=== PATIENT | female | born 1950 | race Caucasian/White ===

== ENCOUNTER → 2017-10-19 | Outpatient (CLI) | payer MEDICARE ==
[~2017-10-19] MED LIST: IRBE150T51 PO; LEVO50TA4 PO; SYMBICORT
== END | disposition home or self-care (01) ==
LOC: RAH 10:00
PROVIDERS: ATTEND Family Medicine
DX: G45.9 Transient cerebral ischemic attack, unspecified (principal)
CPT/HCPCS: 70450; 93880

== ENCOUNTER 2019-12-07 18:20 | Observation (INO) | payer MEDICARE, OTHER ==
[~2019-12-07] VITALS: Ht 167.6 cm; Wt 77.2 kg
[2019-12-07 19:16] LABS: BASOPHILS % (AUTO) 0.2 % (0.0-5.0); EOSINOPHILS % (AUTO) 0.1 % (0.0-8.0); HEMATOCRIT 34.2 % (36-48); LYMPHOCYTES % (AUTO) 13.8 % (21.0-51.0); MEAN CORPUSCULAR HEMOGLOBIN 30.8 pg (27.0-33.0); MEAN CORPUSCULAR HGB CONC 34.2 g/dL (32.0-36.0); MONOCYTES % (AUTO) 6.4 % (3.0-13.0); NEUTROPHILS % (AUTO) 79.1 % (40.0-77.0); PLATELET COUNT (AUTO) 179 K/uL (130-400); RED CELL DISTRIBUTION WIDTH 13.7 % (11.0-15.5)
[2019-12-07 19:29] LABS: CARBON DIOXIDE 28 mmol/L (21-32); CHLORIDE 102 mmol/L (101-111); CREATININE 1.1 mg/dL (0.5-1.5); GLOMERULAR FILTR. RATE CALC 52 mL/min (>60); GLUCOSE,RANDOM 117 mg/dL (70-105); POTASSIUM 3.2 mmol/L (3.5-5.1); SODIUM SERUM 138 mmol/L (136-145); UREA NITROGEN, BLOOD 12 mg/dL (7-18)
[2019-12-07 19:33] LABS: ALANINE AMINOTRANSFERASE 29 U/L (12-78); AMYLASE 41 U/L (25-115); ASPARTATE AMINOTRANSFERASE 22 U/L (10-37); BILIRUBIN,TOTAL 1.4 mg/dL (0.2-1.0); TOTAL PROTEIN, SERUM 6.3 g/dL (6.0-8.3)
[2019-12-07 19:38] LABS: LIPASE < 50 U/L (114-286)
[2019-12-07] MEDS ORDERED: ZOSYN 3.375GM+NS 50ML 50 ML IV ONE (20:46)
[2019-12-07] MEDS ORDERED: ONDANSETRON HCL 4 MG/2 ML VIAL ONE (20:47)
[2019-12-07] MEDS ORDERED: MORPHINE SULFATE 4 MG/1ML SYG ONE (20:47)
[2019-12-07] MEDS ORDERED: SODIUM CHLORIDE 0.9% 1000ML 1,000 ML IV SCH (22:04)
[2019-12-07] MEDS ORDERED: HYDRALAZINE HCL 20 MG/ML VIAL IV PRN (22:15)
[2019-12-07] MEDS ORDERED: LACTULOSE 20 GM/30 ML UDCUP PO PRN (22:15)
[2019-12-07] MEDS ORDERED: ACETAMINOPHEN 325 MG TAB PO PRN ×2 (22:15)
[2019-12-07] MEDS ORDERED: ONDANSETRON HCL 4 MG/2 ML VIAL IV PRN (22:15)
[2019-12-07] MEDS ORDERED: FAMOTIDINE/PF 20 MG/2 ML VIAL IV ONE (22:28)
[2019-12-08] VITALS (7 sets, daily range): BP systolic 99–140; BP diastolic 51–84
--- NOTE | 2019-12-08 00:10 | NUR ---
ADMIT NOTE ADMIT TO ROOM 322 VIA STRETCHER FROM ER. PATIENT AWAKE, ALERT, OX3, NO SOB, C/O PAIN, SEE PAIN ASSESSMENT AND TREATMENT, CONTINUE NPO, IVF INFUSING ORDERED, TEACH PATIENT PLAN OF CARE AND EXPECTED OUTCOME, PATIENT VERBALIZES UNDERSTANDING VIA TEACH BACK
[2019-12-08] MEDS: MORPHINE SULFATE 2 MG/ML 1ML SYG IV PRN ×5 (00:44→21:09)
[2019-12-08] MEDS: ZOSYN 3.375GM+NS 50ML 50 ML IV SCH ×3 (04:19→21:06)
[2019-12-08 05:27] LABS: BASOPHILS % (AUTO) 0.2 % (0.0-5.0); EOSINOPHILS % (AUTO) 0.7 % (0.0-8.0); HEMATOCRIT 30.1 % (36-48); LYMPHOCYTES % (AUTO) 14.9 % (21.0-51.0); MEAN CORPUSCULAR HEMOGLOBIN 30.6 pg (27.0-33.0); MEAN CORPUSCULAR HGB CONC 33.6 g/dL (32.0-36.0); MEAN CORPUSCULAR VOLUME 91.2 fL (79-99); MONOCYTES % (AUTO) 6.3 % (3.0-13.0); NEUTROPHILS % (AUTO) 77.3 % (40.0-77.0); PLATELET COUNT (AUTO) 153 K/uL (130-400); RED CELL DISTRIBUTION WIDTH 13.9 % (11.0-15.5); WHITE BLOOD COUNT (AUTO) 9.9 K/uL (4.8-10.8)
[2019-12-08 05:58] LABS: CREATININE 1.1 mg/dL (0.5-1.5); POTASSIUM 3.1 mmol/L (3.5-5.1)
[2019-12-08] MEDS ORDERED: POTASSIUM CHLORIDE 20 MEQ ERTAB PO SCH (08:30)
[2019-12-08] MEDS ORDERED: MAGNESIUM 2GM PREMIX 50ML 50 ML IV SCH (08:45)
--- NOTE | 2019-12-08 09:00 | NUR ---
DR BLACKWOOD CONSULT DR BLACKWOOD IN TO SEE PATIENT ORDERS FOR LR AT 100CC/HR AND TO KEEP PATIENT NPO
[2019-12-08] MEDS: LACTATED RINGERS 1000ML 1,000 ML IV SCH ×3 (09:36→22:21)
[2019-12-08] MEDS: FAMOTIDINE/PF 20 MG/2 ML VIAL IV SCH ×2 (09:38→10:33)
[2019-12-08] MEDS ORDERED: LIDOCAINE HCL-MPF 1% 2ML VIAL IV PRN (10:30)
--- NOTE | 2019-12-08 15:23 | NUR ---
RD NOTIFICATION Pt admitted with Colitis. Status post colonoscopy; Pt NPO with antibiotic therapy at this time. Pt with nausea, distended abdomen. Abdominal cyst/mass as per EMR. Recommend continue POC. Recommend to consider Altered means nutrition (TPN/PPN). When medically feasible, recommend advance diet as tolerated to goal of GI Soft/[place]. RD to continue to monitor. Please notify as additional nutrition concerns arise. Thank you. Addendum: 12/08/19 at [address] RD Amended: Links added.
[2019-12-08] MEDS ORDERED: GLUCAGON 1MG KIT 1 MG ML IM PRN (16:30)
[2019-12-08] MEDS ORDERED: DEXTROSE 50%-WATER 50 ML DISP.SYRIN IV PRN (16:30)
[2019-12-08] MEDS: POTASSIUM CHLORIDE 20MEQ/100ML 100 ML IV PRN (21:02)
[2019-12-09] MEDS: POTASSIUM CHLORIDE 20MEQ/100ML 100 ML IV PRN (01:26)
[2019-12-09 03:37] VITALS: BP 127/73
[2019-12-09 04:23] LABS: APPEARANCE,URINE Clear (CLEAR); BILIRUBIN,URINE Negative (NEGATIVE); COLOR,URINE Yellow (YELLOW); GLUCOSE, URINE (UA) Negative (NEGATIVE); KETONES,URINE Negative (NEGATIVE); LEUKOCYTE ESTERASE ,URINE Negative (NEGATIVE); NITRATE,URINE Negative (NEGATIVE); OCCULT BLOOD,URINE Negative (NEGATIVE); PROTEIN,URINE Negative (NEGATIVE)
[2019-12-09] MEDS: ZOSYN 3.375GM+NS 50ML 50 ML IV SCH ×3 (04:56→21:38)
[2019-12-09] MEDS: LACTATED RINGERS 1000ML 1,000 ML IV SCH ×3 (04:57→21:38)
[2019-12-09 06:42] LABS: BASOPHILS % (AUTO) 0.3 % (0.0-5.0); HEMATOCRIT 29.7 % (36-48); LYMPHOCYTES % (AUTO) 26.1 % (21.0-51.0); MEAN CORPUSCULAR HGB CONC 33.7 g/dL (32.0-36.0); MONOCYTES % (AUTO) 6.7 % (3.0-13.0); NEUTROPHILS % (AUTO) 61.5 % (40.0-77.0); PLATELET COUNT (AUTO) 150 K/uL (130-400); RED BLOOD CELL COUNT(AUTO) 3.23 MIL/uL (4.00-5.50); RED CELL DISTRIBUTION WIDTH 13.7 % (11.0-15.5); WHITE BLOOD COUNT (AUTO) 7.2 K/uL (4.8-10.8)
[2019-12-09 06:55] LABS: CREATININE 1.1 mg/dL (0.5-1.5); MAGNESIUM 1.9 mg/dL (1.80-2.40); POTASSIUM 3.9 mmol/L (3.5-5.1)
[2019-12-09 07:30] VITALS: BP 149/74
[2019-12-09] MEDS: FAMOTIDINE/PF 20 MG/2 ML VIAL IV SCH ×2 (09:18→21:38)
[2019-12-09 11:00] VITALS: BP 122/71
--- NOTE | 2019-12-09 12:47 | NUR ---
RD UPDATE Pt diet advanced to Full Liquid at time of screen. RD to continue to monitor.
[2019-12-09 16:00] VITALS: BP 138/78
[2019-12-09 20:28] VITALS: BP 138/78
[2019-12-10 00:01] VITALS: BP 126/67
[2019-12-10 04:00] VITALS: BP 129/71
[2019-12-10 05:45] LABS: BASOPHILS % (AUTO) 0.6 % (0.0-5.0); EOSINOPHILS % (AUTO) 6.9 % (0.0-8.0); HEMATOCRIT 30.5 % (36-48); MEAN CORPUSCULAR HEMOGLOBIN 30.1 pg (27.0-33.0); MEAN CORPUSCULAR HGB CONC 33.4 g/dL (32.0-36.0); MONOCYTES % (AUTO) 9.6 % (3.0-13.0); NEUTROPHILS % (AUTO) 52.5 % (40.0-77.0); PLATELET COUNT (AUTO) 210 K/uL (130-400); RED BLOOD CELL COUNT(AUTO) 3.39 MIL/uL (4.00-5.50); RED CELL DISTRIBUTION WIDTH 13.4 % (11.0-15.5); WHITE BLOOD COUNT (AUTO) 5.4 K/uL (4.8-10.8)
[2019-12-10] MEDS: ZOSYN 3.375GM+NS 50ML 50 ML IV SCH (05:46)
[2019-12-10 05:47] LABS: CREATININE 1.1 mg/dL (0.5-1.5); POTASSIUM 3.9 mmol/L (3.5-5.1)
[2019-12-10] MEDS: FAMOTIDINE/PF 20 MG/2 ML VIAL IV SCH (08:13)
[2019-12-10] MEDS: LACTATED RINGERS 1000ML 1,000 ML IV SCH (10:57)
--- NOTE | 2019-12-10 11:41 | NUR ---
DCP CM spoke to pt discussed dc plans. Pt is independent prior to admission, lives at home alone, has a friend available close by. Denies any equipments/services. Feels safe to go back home, still drives, arranges own needs, friend Soha Merchant able to assist with transportation as necessary. DC plan to home once stable. CM to cont to follow up. Addendum: 12/10/19 at 1143 by ROBERTO SO LVN CM Amended: Links added.
[2019-12-10 12:00] VITALS: BP 121/73
[2019-12-10] MEDS ORDERED: AMOX-426 PO (12:13)
[2019-12-10] MEDS ORDERED: FAMO-136 PO (12:13)
--- NOTE | 2019-12-10 14:40 | NUR ---
PATIENT DISCHARGE PATIENT DISCHARGE, IV DISCONTINUED, CATHLON INTACT, BLEEDING CONTROLLED, PATIENT TOLERATED WITHOUT INCIDENT. DISCUSSED THE IMPORTANCE OF FOLLOW UP APPOINTMENT, PATIENT NEEDS TO CALL TO SCHEDULE. PRESCRIPTIONS SENT ELECTRONICALLY TO [facility] ON [facility]. PATIENT STATED SHE UNDERSTOOD AND HAD NO ADDITIONAL QUESTIONS.
== END 2019-12-10 15:00 | disposition home or self-care (01) ==
LOC: EDH 18:20 → EDHIP 22:04 → 3DH 23:13
PROVIDERS: ADMIT Internal Medicine; ATTEND Internal Medicine
DX: K52.9 Noninfective gastroenteritis and colitis, unspecified (principal); N28.1 Cyst of kidney, acquired; E78.5 Hyperlipidemia, unspecified; I10 Essential (primary) hypertension; E03.9 Hypothyroidism, unspecified; Z90.49 Acquired absence of other specified parts of digestive tract; Z88.6 Allergy status to analgesic agent
CPT/HCPCS: 36415 ×4; 71045; 74176; 76770; 80048 ×3; 80053; 81003; 82150; 82270; 82948 ×5; 83690; 83735 ×2; 84484; 85025 ×4; 93005; 96365; 96366 ×3; 96375; 96376 ×3; 99285; G0378 ×3; J2270; J2405; J2543 ×8; J3480 ×2; J3490 ×7; J7120 ×4

== ENCOUNTER → 2020-04-04 | Outpatient (CLI) | payer MEDICARE, OTHER ==
[~2020-04-04] MED LIST changes: +AMOX-426 PO; +FAMO-136 PO
== END | disposition home or self-care (01) ==
LOC: RAH 10:59
PROVIDERS: ATTEND Family Medicine
DX: Z12.31 Encounter for screening mammogram for malignant neoplasm of breast (principal)
CPT/HCPCS: 77067

== ENCOUNTER 2020-08-08 19:02 | Emergency (ER) | payer MEDICARE, OTHER | END 2020-08-08 19:48 | disposition home or self-care (01) | LOC: EDH 19:02 | DX: T81.31XA Disruption of external operation (surgical) wound, not elsewhere classified, initial encounter (principal); I10 Essential (primary) hypertension; E78.5 Hyperlipidemia, unspecified; Z88.6 Allergy status to analgesic agent; Z88.1 Allergy status to other antibiotic agents; Y83.8 Other surgical procedures as the cause of abnormal reaction of the patient, or of later complication, without mention of misadventure at the time of the procedure | CPT/HCPCS: 99281 ==

== ENCOUNTER 2021-05-11 00:02 | Emergency (ER) | payer MEDICARE, OTHER ==
[~2021-05-11] VITALS: Ht 167.6 cm; Wt 76.2 kg
[2021-05-11 00:04] VITALS: BP 142/72
[2021-05-11] MEDS ORDERED: SOLU-MEDROL 40MG VIAL IJ ONE (01:00)
== END 2021-05-11 01:08 | disposition home or self-care (01) ==
LOC: EDH 00:02
DX: S60.861A Insect bite (nonvenomous) of right wrist, initial encounter (principal); E78.00 Pure hypercholesterolemia, unspecified; I10 Essential (primary) hypertension; Z79.51 Long term (current) use of inhaled steroids; Z88.1 Allergy status to other antibiotic agents; Z88.5 Allergy status to narcotic agent; Z88.6 Allergy status to analgesic agent; W57.XXXA Bitten or stung by nonvenomous insect and other nonvenomous arthropods, initial encounter; Y93.89 Activity, other specified; Y92.89 Other specified places as the place of occurrence of the external cause; Y99.8 Other external cause status
CPT/HCPCS: 96372; 99283; J2920

== ENCOUNTER → 2021-07-13 | Outpatient (CLI) | payer MEDICARE, OTHER | END | disposition home or self-care (01) | LOC: RAH 12:59 | PROVIDERS: ATTEND Family Medicine | DX: Z12.31 Encounter for screening mammogram for malignant neoplasm of breast (principal) | CPT/HCPCS: 77067 ==

== ENCOUNTER 2023-07-21 14:07 | Emergency (ER) | payer MEDICARE ==
[~2023-07-21] VITALS: Ht 167.6 cm; Wt 73.9 kg
[2023-07-21 14:12] VITALS: BP 137/68; PULSE 89; RESP 16
[2023-07-21] MEDS ORDERED: CIPR7.5D7 OT (15:27)
== END 2023-07-21 16:17 | disposition home or self-care (01) ==
LOC: EDH 14:07
DX: H60.321 Hemorrhagic otitis externa, right ear (principal); E78.00 Pure hypercholesterolemia, unspecified; I10 Essential (primary) hypertension

== ENCOUNTER → 2023-10-02 | Outpatient (CLI) | payer MEDICARE ==
[~2023-10-02] MED LIST changes: +CIPR7.5D7 OT
== END | disposition home or self-care (01) ==
LOC: RAH 14:28
PROVIDERS: ATTEND Internal Medicine
DX: Z12.31 Encounter for screening mammogram for malignant neoplasm of breast (principal)
CPT/HCPCS: 77067

== ENCOUNTER → 2025-04-12 | Outpatient (CLI) | payer MEDICARE ==
--- NOTE | 2025-04-15 09:09 | HMCIMG ---
BILATERAL BREAST ULTRASOUND: CLINICAL HISTORY: Moderately Dense breast with follow-up for mammogram from 03/14/2025. Finding: Real-time examination of the both breasts demonstrates moderately heterogeneous echotexture throughout both the breasts without evidence of focal solid mass. The left breast has a small cyst measuring 0.2 x 0.2 x 0.2 cm 3:00. Both axillary region has benign-appearing lymph node measuring 0.8 x 0.3 x 0.8 cm second lymph node measuring 1.6 x 0.7 x 1.4 cm. The left axilla has a benign-appearing lymph node measuring 2.4 x 0.9 x 1.7 cm second lymph node measuring 0.7 x 0.4 x 0.7 cm.. IMPRESSION: Moderately dense breasts with no solid hypoechoic lesion seen. 2. Small cyst in the left breast. I would recommend annual mammography with tomography with bilateral breast sonogram. FINAL ASSESSMENT: ACR: BI-RAD- 2. Benign: Also a negative assessment; finding(s) benign abnormalities. Management: Routine mammography screening. Likelihood of Cancer: Essentially 0% likelihood of malignancy.
== END | disposition home or self-care (01) ==
LOC: RAH 10:23
PROVIDERS: ATTEND Internal Medicine
DX: N60.02 Solitary cyst of left breast (principal); R92.333 Mammographic heterogeneous density, bilateral breasts; R59.0 Localized enlarged lymph nodes